=== PATIENT | male | born 1990 | race African-American/Black ===

== ENCOUNTER 2022-07-09 00:24 | Emergency (ER) | payer OTHER ==
[2022-07-09] MEDS ORDERED: Ketorolac Tromethamine 30 MG/ML VIAL ONE (01:37)
[2022-07-09] MEDS ORDERED: Lidocaine 1% MPF 2 ML VIAL ONE (02:09)
[2022-07-09] MEDS ORDERED: CEFAZOLIN 2 GM VIAL ONE (02:36)
[2022-07-09] MEDS ORDERED: Boostrix 0.5 ML (Tdap) VIAL (>/=7 yrs of age) ONE (02:37)
[2022-07-09 04:14] LABS: SARS-CoV-2 NAA Rapid Test Not Detected (NotDetected)
[2022-07-09] MEDS ORDERED: Fentanyl 100 MCG/2 ML VIAL ONE (05:15)
== END 2022-07-09 08:18 | disposition short-term general hospital (02) ==
LOC: ERS 00:24
DX: S62.501B Fracture of unspecified phalanx of right thumb, initial encounter for open fracture (principal); Y93.B2 Activity, push-ups, pull-ups, sit-ups; Z20.822 Contact with and (suspected) exposure to COVID-19
CPT/HCPCS: 12001; 26641; 90471; 90715; 96365; 96372; 96375; J1885; J3010; U0002